=== PATIENT | female | born 1940 | race Caucasian/White ===

== ENCOUNTER → 2017-09-05 | Outpatient (CLI) | payer MEDICARE, OTHER ==
[~2017-09-05] MED LIST: AMLO5TAB2 PO; ASPI-1005 PO; LOSA50TA37 PO; METO-409 PO
== END | disposition home or self-care (01) ==
LOC: RAH 09:32
PROVIDERS: ATTEND Family Medicine
DX: K80.20 Calculus of gallbladder without cholecystitis without obstruction (principal); N28.1 Cyst of kidney, acquired
CPT/HCPCS: 76700

== ENCOUNTER → 2017-09-20 | Outpatient (CLI) | payer OTHER ==
[~2017-09-20] MED LIST changes: +IOPAMIDOL-370 100 ML VIAL IV ONE; +IOPAMIDOL-370 75 ML VIAL IV ONE
== END | disposition home or self-care (01) ==
LOC: OIH 09:39
PROVIDERS: ATTEND Internal Medicine Cardiovascular Disease
DX: I71.4 Abdominal aortic aneurysm, without rupture (principal); I70.0 Atherosclerosis of aorta; K57.30 Diverticulosis of large intestine without perforation or abscess without bleeding; I21.9 Acute myocardial infarction, unspecified
CPT/HCPCS: 75635; Q9967 ×2

== ENCOUNTER 2017-09-30 09:00 | Inpatient (IN) | payer OTHER ==
[~2017-09-30] VITALS: Ht 157.5 cm; Wt 47.6 kg
[2017-09-30 09:28] VITALS: BP 106/69
[2017-09-30 09:56] LABS: EOSINOPHILS % (AUTO) 8.5 % (0.0-8.0); HEMATOCRIT 36.9 % (36-48); LYMPHOCYTES % (AUTO) 24.7 % (21.0-51.0); MEAN CORPUSCULAR HEMOGLOBIN 28.7 pg (27.0-33.0); MEAN CORPUSCULAR HGB CONC 33.8 g/dL (32.0-36.0); MEAN CORPUSCULAR VOLUME 84.8 fL (79-99); MONOCYTES % (AUTO) 6.5 % (3.0-13.0); NEUTROPHILS % (AUTO) 59.3 % (40.0-77.0); PLATELET COUNT (AUTO) 220 K/uL (130-400); RED BLOOD CELL COUNT(AUTO) 4.35 MIL/uL (4.00-5.50); RED CELL DISTRIBUTION WIDTH 15.6 % (11.0-15.5); WHITE BLOOD COUNT (AUTO) 8.1 K/uL (4.8-10.8)
[2017-09-30] MEDS ORDERED: AMLO5TAB2 PO (10:07)
[2017-09-30] MEDS ORDERED: METO-409 PO (10:07)
[2017-09-30] MEDS ORDERED: LOSA50TA37 PO (10:07)
[2017-09-30] MEDS ORDERED: ASPI-1005 PO (10:07)
[2017-09-30 10:11] LABS: INR 0.96 (0.85-1.15); PARTIAL THROMBOPLASTIN TIME 28.7 SEC (26.3-35.5); PROTHROMBIN TIME 10.1 SEC (9.6-11.6)
[2017-09-30 10:13] LABS: POTASSIUM 4.5 mmol/L (3.5-5.1)
[2017-09-30 10:31] LABS: APPEARANCE,URINE Cloudy (CLEAR); BILIRUBIN,URINE Negative (NEGATIVE); COLOR,URINE Yellow (YELLOW); GLUCOSE, URINE (UA) Negative (NEGATIVE); KETONES,URINE Negative (NEGATIVE); LEUKOCYTE ESTERASE ,URINE Trace (NEGATIVE); NITRATE,URINE Negative (NEGATIVE); OCCULT BLOOD,URINE Negative (NEGATIVE); PH,URINE 6.5 (5.0-8.0); PROTEIN,URINE POS 1+ (NEGATIVE)
[2017-09-30 10:38] LABS: BACTERIA,URINE Few /HPF (None Seen); MUCUS,URINE Few LPF (None Seen); SQUAMOUS EPITHELIAL CELL,UR Few /HPF (0-2)
[2017-09-30] MEDS ORDERED: SODIUM CHLORIDE 0.9% 1000ML 1,000 ML IV SCH (11:15)
[2017-09-30] MEDS ORDERED: SODIUM CHLORIDE 0.9% 500ML 500 ML IV SCH (11:30)
[2017-10-02] VITALS (17 sets, daily range): BP systolic 94–141; BP diastolic 57–90
[2017-10-02] MEDS ORDERED: SODIUM CHLORIDE 0.9% 1000ML 1,000 ML IV ONE (07:17)
[2017-10-02] MEDS ORDERED: ISOVUE-300 100 ML VIAL IV ONE (10:12)
[2017-10-02] MEDS ORDERED: HEPARIN SODIUM 1000UNIT/ML 10ML VIAL ONE (10:12)
[2017-10-02] MEDS ORDERED: SUCCINYLCHOLINE 200MG/10ML SYR ONE (10:27)
[2017-10-02] MEDS ORDERED: NEOSTIGMINE 5MG/5ML SYR IV ONE (10:27)
[2017-10-02] MEDS ORDERED: DEXAMETHASONE SOD PHOSPHATE 10MG/ML 1ML VIAL ONE (10:27)
[2017-10-02] MEDS ORDERED: ONDANSETRON HCL 4 MG/2 ML VIAL ONE (10:27)
[2017-10-02] MEDS ORDERED: LIDOCAINE PF 2% 5ML ABBOJECT ONE (10:27)
[2017-10-02] MEDS ORDERED: GLYCOPYRROLATE 0.2 MG/ML 5 ML VIAL ONE (10:27)
[2017-10-02] MEDS ORDERED: MIDAZOLAM HCL 1 MG/ML 2ML VIAL ONE (10:27)
[2017-10-02] MEDS ORDERED: PROPOFOL 10 MG/ML 20ML VIAL IV ONE (10:28)
[2017-10-02] MEDS ORDERED: FENTANYL CITRATE PF 50 MCG/1 ML 2ML VIAL ONE (10:29)
[2017-10-02] MEDS ORDERED: ONDANSETRON HCL 4 MG/2 ML VIAL IV PRN (12:30)
[2017-10-02] MEDS ORDERED: MORPHINE SULFATE 5 MG/ML VIAL IV PRN (12:30)
[2017-10-02] MEDS ORDERED: SODIUM CHLORIDE 0.9% 1000ML 1,000 ML IV SCH (12:30)
[2017-10-02] MEDS ORDERED: MORPHINE SULFATE 4 MG/1ML SYG IV PRN (12:30)
[2017-10-02] MEDS ORDERED: ACETAMINOPHEN 325 MG TAB PO PRN ×2 (12:30)
[2017-10-02] MEDS ORDERED: ACETAMINOPHEN-CODEINE 300/30MG TAB PO PRN ×2 (12:30)
[2017-10-02] MEDS ORDERED: SODIUM CHLORIDE 0.9% 250 ML IV STA (20:37)
[2017-10-02] MEDS ORDERED: SODIUM CHLORIDE 0.9% 250 ML IV ONE (20:40)
[2017-10-03] MEDS ORDERED: LOSARTAN 50 MG TABLET PO SCH (09:00)
[2017-10-03] MEDS ORDERED: ASPIRIN 81MG TAB.CHEW PO SCH (09:00)
[2017-10-03] MEDS ORDERED: AMLODIPINE BESYLATE 5 MG TAB PO SCH (09:00)
== END 2017-10-02 23:38 | disposition home or self-care (01) | DRG 301 ==
LOC: EDSTATUS 09:00 → DAHIP 10-02 05:55 → 2CH 10-02 12:21
PROVIDERS: ADMIT Internal Medicine Cardiovascular Disease; ATTEND Internal Medicine Cardiovascular Disease
PROC: B4101ZZ Fluoroscopy of Abdominal Aorta using Low Osmolar Contrast (ICD-10-PCS; principal; 2017-10-02)
DX: I71.4 Abdominal aortic aneurysm, without rupture (principal); I73.9 Peripheral vascular disease, unspecified; I10 Essential (primary) hypertension; R56.9 Unspecified convulsions; F41.9 Anxiety disorder, unspecified; K21.9 Gastro-esophageal reflux disease without esophagitis; F17.200 Nicotine dependence, unspecified, uncomplicated; J44.9 Chronic obstructive pulmonary disease, unspecified; E78.5 Hyperlipidemia, unspecified; Z90.710 Acquired absence of both cervix and uterus
CPT/HCPCS: 36200; 36415; 71045; 75625; 75716; 80048; 81001; 85025; 85610; 85730; 86156; 86850; 86870; 86900; 86901; 86922; 93005; C1769; C1887; C1894; J0330; J1100; J1644; J2001; J2250; J2270; J2405; J2704; J2710; J3010; J3490; J7030; Q9967